=== PATIENT | male | born 1990 ===

== ENCOUNTER 2016-08-13 13:19 | Emergency (ER) | payer OTHER ==
[~2016-08-13] VITALS: Ht 193 cm; Wt 136.1 kg
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
[2016-08-13 16:04] VITALS: BP 157/95
[2016-08-13] MEDS ORDERED: MOBIC15 M1 PO (16:12)
== END 2016-08-13 16:16 ==
LOC: ERH 13:19
DX: R09.1 Pleurisy (principal); R03.0 Elevated blood-pressure reading, without diagnosis of hypertension
CPT/HCPCS: 93005; 93010

== ENCOUNTER 2016-08-21 01:05 | Emergency (ER) | payer OTHER ==
[~2016-08-21] VITALS: Ht 193 cm; Wt 136.1 kg
[~2016-08-21 01:05] MED LIST: MOBIC15 M1 PO
[2016-08-21 01:25] VITALS: BP 110/75
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
[2016-08-21] MEDS ORDERED: CLARITIN10 M1 PO (02:15)
[2016-08-21] MEDS ORDERED: AUGMENTIN 875-1 EACH PO (02:15)
[2016-08-21] MEDS ORDERED: PREDNISONE50 M1 PO (02:15)
[2016-08-21] MEDS ORDERED: TESSALON PERLE100 M1 PO (02:15)
== END 2016-08-21 02:19 ==
LOC: ERH 01:05
DX: J40 Bronchitis, not specified as acute or chronic (principal)

== ENCOUNTER 2017-06-05 13:41 | Emergency (ER) | payer OTHER ==
[~2017-06-05] VITALS: Ht 193 cm; Wt 114.8 kg
[~2017-06-05 13:41] MED LIST changes: +AUGMENTIN 875-1 EACH PO; +CLARITIN10 M1 PO; +ERYTHROMYCIN1 GM OPH; +PATADAY2.5 ML OPH; +PREDNISONE50 M1 PO; +TESSALON PERLE100 M1 PO
[2017-06-05 13:48] VITALS: BP 129/77
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
== END 2017-06-05 16:29 ==
LOC: ERH 13:41
DX: R05 Cough (principal)

== ENCOUNTER 2017-07-23 23:09 | Emergency (ER) | payer OTHER ==
[2017-07-24 00:36] VITALS: BP 107/68
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
[2017-07-24] MEDS ORDERED: IBUPROFEN800 M1 PO (01:04)
[2017-07-24] MEDS ORDERED: CYCLOBENZAPRINE10 M1 PO (01:04)
== END 2017-07-24 00:40 ==
LOC: ERH 23:09
DX: M54.5 Low back pain (principal); J45.909 Unspecified asthma, uncomplicated; Z87.891 Personal history of nicotine dependence